=== PATIENT | female | born 2000 | race Caucasian/White ===

== ENCOUNTER 2021-12-06 13:05 | Emergency (ER) | payer OTHER, SELFPAY ==
--- NOTE | 2021-12-06 13:09 | ED.ABDPAIN ---
HPI - Abdominal Pain General Chief Complaint: Urogenital-Female Stated Complaint: abdomen cramping Time Seen by Provider: 12/06/21 13:09 Source: patient and RN notes reviewed History of Present Illness HPI narrative: Patient is a 21-year-old female who presents the urgent care with complaints of lower abdominal cramping. Patient states that started 3 days ago with some urinary frequency. Patient states that she does have a Nexplanon in her left arm and when she has had periods in the past, she does have a lot of abdominal cramping. However patient states that her Nexplanon expires in 1 month and she has not followed up with a [employer] in some time. Patient denies of any vaginal bleeding. Denies of any nausea, vomiting. No other acute complaints. No acute distress noted. Patient read the plan of care. Some parts of this dictation were generated by voice recognition software and may contain typographical and/or grammatical inaccuracies. Related Data Home Medications Medication Instructions Recorded Confirmed No Home Medications 12/06/21 12/06/21 Allergies Allergy/AdvReac Type Severity Reaction Status Date / Time No Known Allergies Allergy Verified 04/20/13 15:46 Review of Systems Review of Systems: CONSTITUTIONAL: Denies fever, chills, or sweats. EYES: Denies visual changes, redness, or discharge. ENT: Denies rhinorrhea, congestion, sore throat, or otalgia. CARDIOVASCULAR: Denies chest pain, palpitations, or edema. RESPIRATORY: Denies cough or dyspnea. GASTROINTESTINAL: Reports of abdominal cramping without nausea, vomiting or diarrhea GENITOURINARY: Denies dysuria or hematuria. Reports of urinary frequency SKIN: Denies rash or itching. MUSCULOSKELETAL: Denies back pain, joint pain, or myalgia. NEUROLOGIC: Denies headache, numbness, or weakness. All other systems reviewed are negative, except as documented in HPI. PMFSH Comments At the time of my signature, I reviewed and agree with the nursing past medical, surgical, social, and family history. There is no relevant family history pertinent to the patient complaint. Exam Narrative: GENERAL: This is a well-nourished, well-developed patient, in no apparent distress. HEAD: normocephalic, atraumatic. EYES: PERRL. Sclera clear/white. Vision is grossly intact. EARS: External ears normal, auditory canals clear and without drainage, TMs normal without perforation. Hearing grossly intact. NOSE: External nose normal with no obvious nasal discharge, nares without redness, no rhinorrhea. THROAT: Mucous membranes moist NECK: Neck supple CARDIOVASCULAR: Regular rate and rhythm without murmurs, gallops, or rubs. RESPIRATORY: Clear to auscultation. Breath sounds equal bilaterally. No wheezes, rales, or rhonchi. GASTROINTESTINAL: Abdomen soft, mild to moderate lower right suprapubic tenderness, nondistended. Bowel sounds are active. SKIN: warm, intact with no suspicious lesions or rash, good texture and turgor. NEURO: awake, alert, and oriented to person, place and time. There were no obvious focal neurologic abnormalities. EXTREMITIES: No clubbing, cyanosis, or edema. BACK: Negative bilateral CVA tenderness Course Course Level of Care: Express Care Visit Vital Signs Vital signs: Vital Signs Temperature 98.3 F 12/06/21 13:13 Pulse Rate 93 12/06/21 13:13 Respiratory Rate 16 12/06/21 13:13 Blood Pressure 125/77 12/06/21 13:13 Pulse Oximetry 100 12/06/21 13:13 Temperature 98.3 F 12/06/21 13:13 Pulse Rate 93 12/06/21 13:13 Respiratory Rate 16 12/06/21 13:13 Blood Pressure 125/77 12/06/21 13:13 Pulse Oximetry 100 12/06/21 13:13 Reviewed MDM - Abdominal Pain MDM Narrative Medical decision making narrative: Reviewed lab results with the patient. She is aware that was negative as well as urine sample. There is no indication that you have a urinary tract infection. Advised patient to increase her water intake and eat a light diet
[2021-12-06 13:13] VITALS: BP 125/77; PULSE 93; RESP 16; TEMP 36.8; O2SAT 100
== END 2021-12-06 13:41 | disposition home or self-care (01) ==
PROVIDERS: Emergency Provider Nurse Practitioner Family
DX: R10.31 Right lower quadrant pain (principal)
CPT/HCPCS: 81003; 99202; G0463